=== PATIENT | male | born 1985 | race Caucasian/White ===

== ENCOUNTER 2017-03-24 15:52 | Emergency (ER) | payer OTHER ==
--- NOTE | 2017-03-24 16:52 | Emergency Department Report ---
ED Male HPI - General Chief complaint: Urogenital-Male Stated complaint: DISCHARGE Time Seen by Provider: 03/24/17 16:45 Source: patient Mode of arrival: Ambulatory Limitations: No Limitations - History of Present Illness MD Complaint: penile discharge -: Gradual (weeks) Severity: moderate discharge. denies: swelling, mass, rash, urinary retention, blood in urine, dysuria, fever, nausea/vomiting, incontinence - Related Data Sexually active: Yes Home Medications Medication Instructions Recorded Confirmed Last Taken No Known Home Medications [No 03/24/17 03/24/17 Unknown Reported Home Medications] Allergies Allergy/AdvReac Type Severity Reaction Status Date / Time No Known Allergies Allergy Unverified 03/24/17 15:58 ED Review of Systems ROS: Stated complaint: DISCHARGE Other details as noted in HPI Comment: All other systems reviewed and negative Constitutional: no symptoms reported, see HPI. denies: chills, diaphoresis Eyes: as per HPI. denies: eye pain ENT: as per HPI. denies: ear pain, throat pain Respiratory: no symptoms reported, see HPI. denies: cough, orthopnea Cardiovascular: as per HPI. denies: chest pain, palpitations, dyspnea on exertion, orthopnea Endocrine: no symptoms reported, see HPI. denies: excessive sweating, flushing , intolerance to cold, intolerance to heat Gastrointestinal: as per HPI. denies: abdominal pain, nausea, vomiting, diarrhea, constipation, hematemesis, melena Genitourinary: as per HPI, dysuria, discharge (a lot in underware. was told by nurse in senior care it was std but not tx). denies: urgency, frequency, hematuria, testicular pain, testicular mass Musculoskeletal: as per HPI. denies: back pain Skin: as per HPI. denies: rash, lesions Neurological: as per HPI. denies: headache, weakness Psychiatric: as per HPI. denies: anxiety, depression Hematological/Lymphatic: as per HPI. denies: easy bleeding ED Past Medical Hx - Past Medical History Previous Medical History?: No - Surgical History Past Surgical History?: No - Family History Family history: no significant - Social History Smoking Status: Current Every Day Smoker Substance Use Type: Alcohol - Medications Home Medications: Home Medications Medication Instructions Recorded Confirmed Last Taken Type No Known Home Medications [No 03/24/17 03/24/17 Unknown History Reported Home Medications] ED Physical Exam - General Limitations: No Limitations General appearance: alert - Head Head exam: Present: atraumatic - Eye Eye exam: Present: PERRL - ENT ENT exam: Present: normal orophraynx, mucous membranes moist - Neck Neck exam: Present: normal inspection - Respiratory Respiratory exam: Present: normal lung sounds bilaterally - Cardiovascular Cardiovascular Exam: Present: regular rate - GI/Abdominal GI/Abdominal exam: Present: soft, normal bowel sounds. Absent: distended, tenderness, guarding, rebound, rigid, diminished bowel sounds - Rectal Rectal exam: Present: deferred - exam: Present: urethral discharge. Absent: testicular tenderness, scrotal swelling, vertical testicular lie External exam: Present: normal external exam - Extremities Exam Extremities exam: Present: normal inspection, full ROM. Absent: tenderness - Back Exam Back exam: Present: normal inspection, full ROM. Absent: tenderness, CVA tenderness (R), CVA tenderness (L) - Neurological Exam Neurological exam: Present: alert, oriented X3 - Psychiatric Psychiatric exam: Present: normal affect, normal mood - Skin Skin exam: Present: warm, dry, intact, normal color. Absent: rash ED Course Vital Signs 03/24/17 15:59 Temperature 98.6 F Pulse Rate 96 H Respiratory 17 Rate Blood Pressure 150/99 O2 Sat by Pulse 100 Oximetry - Reevaluation(s) Reevaluation #1: 03/24/17 17:29 here w gf w same s/s sti tx educated Critical care attestation.: If time is entered above; I have spent that time in minutes in the direct care of this critically ill patient, excluding procedure time. ED Disposition Clinical Impression: STI (sexually transmitted infection) Disposition: TO HOME OR SELFCARE Is pt being admited?: No Does the pt Need Aspirin: No Condition: Stable Instructions: Safe Sex (ED) Additional Instructions: safe sex Referrals: PRIMARY CARE, [Primary Care Provider] - 3-5 Days SAM QUARLES MD [Staff Physician] - 3-5 Days Time of Disposition: 17:30
[2017-03-24 17:20] LABS: Bilirubin,Urine NEG (Negative); Blood,Urine MOD (Negative); Ketones,Urine NEG (Negative); Leukocyte Esterase,Urine LG (Negative); Mucus,Urine FEW /HPF; Nitrite,Urine NEG (Negative); Urobilinogen,Urine < 2.0 mg/dL (<2.0)
[2017-03-24 17:22] LABS: WBC,Urine > 182.0 /HPF (0.0-6.0)
[2017-03-24] MEDS ORDERED: ROCEPHIN IM ONE (17:25)
[2017-03-24] MEDS ORDERED: XYLOCAINE 1% MPF 5 mL INFILTRATI ONE (17:25)
[2017-03-24] MEDS ORDERED: ZITHROMAX PO ONE (17:26)
[2017-03-24 21:06] VITALS: BP 140/79
== END 2017-03-24 18:00 | disposition home or self-care (01) ==
LOC: ED 15:52
DX: A64 Unspecified sexually transmitted disease (principal); F17.210 Nicotine dependence, cigarettes, uncomplicated
CPT/HCPCS: 81001; 87591; 96372; 99283; J0696